=== PATIENT | female | born 2000 | race Caucasian/White ===

== ENCOUNTER 2023-06-12 21:47 | Emergency (ER) | payer BC, MEDICAID, SELFPAY ==
--- NOTE | ~2023-06-12 | XR_ITS ---
EXAM: XR hand LT min 3V DATE: 06/12/2023 22:02 HISTORY: SWELLING AND PAIN TO LATERAL 5TH DIGIT AND METACARPAL . COMPARISON: None available. FINDINGS: Normal mineralization. Comminuted, intra-articular fracture of the proximal aspect of the fifth middle phalange, with minimal displacement. No lytic or blastic lesion. Joint spaces are mainta ined. No erosion or periosteal change. Soft tissues within normal limits. IMPRESSION: Comminuted, minimally displaced, intra-articular fracture of the proximal aspect of the l eft fifth middle phalange. Reviewed, dictated and finalized at location K. IMPRESSION: Comminuted, minimally displaced, intra-articular fracture of the pr oximal aspect of the left fifth middle phalange.
[2023-06-12 21:49] VITALS: BP 156/101; PULSE 103; RESP 20; TEMP 36.2; O2SAT 100
--- NOTE | 2023-06-12 23:11 | ED.UPPEXIN ---
HPI - Extremity Injury (Upper) General Chief Complaint: Extremity Injury, Upper Stated Complaint: left hand injury Time Seen by Provider: 06/12/23 22:02 History of Present Illness HPI narrative: 22-year-old female reports for evaluation of left fifth finger pain after was hit with a softball tonight. Patient states she was at third base and a line drive was hit directly to her face, she put her left hand up to deflect the ball and the ball hit her left fifth digit. She is reporting pain to her left fifth digit that extends into the metacarpal and into the fourth digit with swelling to the fifth digit. Reports limited range of motion secondary to pain. She denies other injuries acquired, no wrist pain, no pain to remainder of upper extremity. No lacerations or abrasions. Related Data Allergies Allergy/AdvReac Type Severity Reaction Status Date / Time iodine Allergy Unknown Verified 06/12/23 21:48 Review of Systems Review of Systems: CONSTITUTIONAL: Denies fever, chills EYES: Denies visual changes, redness, or discharge. ENT: Denies rhinorrhea, congestion, sore throat, or otalgia. CARDIOVASCULAR: Denies chest pain, palpitations, or edema. RESPIRATORY: Denies cough or dyspnea. GASTROINTESTINAL: Denies abdominal pain, nausea, vomiting, or diarrhea. GENITOURINARY: Denies dysuria or hematuria. SKIN: Denies rash or itching. MUSCULOSKELETAL: See HPI NEUROLOGIC: Denies headache, numbness, dizziness, or weakness. PSYCHIATRIC: Denies anxiety or depression. Exam Narrative: GENERAL: Well-appearing, in no acute distress. HEAD: Normocephalic NECK: Supple. CHEST: No respiratory distress. Clear to auscultation, no adventitious breath sounds. HEART: Regular rate and rhythm. No murmur heard. Normal peripheral pulses. ABDOMEN: Soft, nontender, normal active bowel sounds. EXTREMITIES: LUE:Tenderness and edema to the proximal and middle phalanx of the left fifth digit with tenderness to palpation. Limited range of motion secondary to pain. Cap refill less than 2. Sensation intact. Remainder of hand and upper extremity unremarkable. Full range of motion of remainder of fingers and wrist. Radial pulse 2+. No overlying skin changes, abrasions, ecchymosis or lacerations. SKIN: Warm, dry, no rash. NEURO: No focal deficits. Alert and oriented x3. PSYCH: Normal mood and affect. Course Vital Signs Vital signs: Vital Signs Temperature 97.2 F L 06/12/23 21:49 Pulse Rate 103 H 06/12/23 21:49 Respiratory Rate 20 06/12/23 21:49 Blood Pressure 156/101 H 06/12/23 21:49 Pulse Oximetry 100 06/12/23 21:49 Oxygen Delivery Room Air 06/12/23 21:49 Temperature 98 F 06/12/23 23:34 Pulse Rate 92 06/12/23 23:34 Respiratory Rate 16 06/12/23 23:34 Blood Pressure 157/115 H 06/12/23 23:34 Pulse Oximetry 100 06/12/23 23:34 Oxygen Delivery Room Air 06/12/23 21:49 MDM - Extremity Injury (Upper) MDM Narrative Medical decision making narrative: 22-year-old female reports for evaluation of left fifth finger pain after was hit with a softball tonight. Initial vitals reveal elevated blood pressure, tachycardia 103, otherwise unremarkable. Exam significant for tenderness to the left fifth digit overlying the proximal and middle phalanx with edema and limited range of motion. She is neurovascularly intact. Limited range of motion likely secondary to pain and edema. X-rays show comminuted, minimally displaced, intra-articular fracture of the proximal aspect of the left fifth middle phalange. Imaging discussed with patient. She was placed in a finger splint and provided [place] in the ED. Encouraged Tylenol, ibuprofen, RICE and follow-up with hand surgeon Dr. Can within the following week for reevaluation. Strict ED return precautions discussed. She is agreeable to plan verbalized understanding. Discharged in stable condition. Medical Records Attestation: I reviewed the patient's medical records. Discharge Plan
[2023-06-12] MEDS: HYDROcodone/acetaminophen (*CRX) 5-325 MG TABLET 1 TAB PO (23:29)
[2023-06-12 23:34] VITALS: BP 157/115; PULSE 92; RESP 16; TEMP 36.6; O2SAT 100
== END 2023-06-12 23:34 | disposition home or self-care (01) ==
PROVIDERS: Emergency Provider Physician Assistant; PCP Family Medicine
DX: S62.627A Displaced fracture of middle phalanx of left little finger, initial encounter for closed fracture (principal); W21.07XA Struck by softball, initial encounter
CPT/HCPCS: 29130; 73130; 99284; A9270

== ENCOUNTER 2023-06-17 10:04 | Outpatient (CLI) | payer BC, MEDICAID, SELFPAY ==
--- NOTE | ~2023-06-17 | CT_ITS ---
EXAMINATION: CT hand LT wo con DATE: 06/17/2023 10:22 INDICATION: Fracture at the base of the left fifth middle phalanx. TECHNIQUE: High resolution computed tomography (CT) of the left hand was performed without intravenou s contrast. Additional sagittal and coronal reconstructions were performed. Automated exposure contro l and iterative reconstruction technique were employed. The dose-length product was 507.41 mGy-cm. COMPARISON: Left hand radiographs dated 06/12/2023 FINDINGS: Minimally displaced and mildly impacted comminuted intra-articular fracture at the base of the left f ifth middle phalanx. There is up to 1 mm dorsal displacement of a fracture across the dorsal rim of t he articular surface. There is slight proximal migration of the middle phalanx relative to the head o f the proximal phalanx which is positioned between the volar and dorsal sided fragment at the base of the distal phalanx. There is central impaction with 1-2 mm depression of fragments comprising the ce ntral aspect of the proximal articular surface. Alignment and joint spaces in the left hand are other adan normal with no other fractures identified. IMPRESSION: 1. Minimally displaced and mildly impacted comminuted intra-articular fracture at the base of the lef t fifth middle phalanx. Reviewed, dictated and finalized at location A. IMPRESSION: 1. Minimally displaced and mildly impacted comminuted intra-articular fracture at the base of the left fifth middle phalanx.
== END 2023-06-17 10:05 | disposition home or self-care (01) ==
PROVIDERS: PCP Family Medicine; Visit Provider Plastic Surgery
DX: S62.627A Displaced fracture of middle phalanx of left little finger, initial encounter for closed fracture (principal)
CPT/HCPCS: 73200

== ENCOUNTER 2023-06-20 02:47 | Day surgery (SDC) | payer BC, MEDICAID, SELFPAY ==
[2023-06-17 14:23] VITALS: BMI 28.7
--- NOTE | 2023-06-17 14:27 | PC.NURSE ---
Report to the Outpatient Waiting Room, entrance under the green pavilion located off [facility], at time 1130 on date 06/20/23. Planned Procedure Time: 1330. Time changes happen often and if your time is changed the preop area will call you the afternoon before. - You and your visitor will be asked to self-screen and do not enter if you have any COVID symptoms. - A mask is optional within the hospital at this time. Patients may have clear liquids (water, carbonated beverages, clear teas, apple juice) until 8 hours prior to surgery (PER DR. HALL) with a maximum of 20 ounces. - No food from midnight until time of surgery Take the following medications with a SIP of water the morning of surgery: N/A DO NOT STOP ANY OF YOUR OTHER PRESCRIPTION MEDICATIONS PRIOR TO SURGERY ?EXCEPT THE FOLLOWING Medications to discontinue per physician: N/A Date to take last dose: N/A Please no make-up, nail cymro, hairspray, perfume, deodorant, or body powder the day of surgery. No jewelry (including any body piercings) or valuables the day of surgery, leave them at home. Please take a shower or bath the night before, or the morning of, surgery with an antibacterial soap. Wear comfortable, loose fitting clothing. - Jewelry must be removed prior to entering the operating room. Rings and piercings that are not removed may be cut off. - The hospital will not accept responsibility for valuables. - Please leave all valuables, including medications, at home the day of surgery. If you are going home after surgery, a licensed heavy truck driver must drive you home. - NO public transportation without another adult if you receive anesthesia. - We recommend that an adult stay with you for 24 hours following discharge. - We also recommend that you do not drive, make important decision, drink alcoholic beverages, or take any drugs that were not prescribed by your health care provider for at least 24 hours after your discharge time. Follow any additional instructions given to you from your surgeon. If you or anyone in your household have experienced Covid symptoms in the past week, please notify your surgeon or the nurse liaison at the phone number below for possible testing. Telephone instructions given to PT - MAX NARVAEZ and asked if any additional questions and then verbalized understanding. Patient advised to call surgeon office or pre surgery nurse liaison [phone] if any additional questions.
[2023-06-20] VITALS (7 sets, daily range): BP systolic 122–137; BP diastolic 86–96; PULSE 72–110; RESP 14–20; TEMP 36.4–36.7; O2SAT 99–100
--- NOTE | ~2023-06-20 | XR_ITS ---
EXAMINATION: XR surgery orthopedic DATE: 06/20/2023 14:35 INDICATION: Fracture of the left fifth middle phalanx for closed reduction and external fixation. TECHNIQUE: 3 fluoroscopic images of the left fifth digit were obtained during procedure performed by Dr. Belle. Radiologist was not present for the imaging or procedure. The amount of fluoroscopy t sheldon used during this procedure was 0.6 minutes. COMPARISON: None. FINDINGS: Again seen is intra-articular fracture at the base of the middle phalanx which on the lateral project ion demonstrates some persistent depression of a small portion of the central articular surface. Exte rnal fixation devices been placed which extends across the heads of the proximal and middle phalanges . Alignment remains near-anatomic. No new fractures identified. IMPRESSION: 1. Fluoroscopy utilized during closed reduction and external fixation of a comminuted intra-articular fracture at the base of the left fifth middle phalanx. See procedure note for further detail. Reviewed, dictated and finalized at location A. IMPRESSION: 1. Fluoroscopy utilized during closed reduction and external fixation of a comm inuted intra-articular fracture at the base of the left fifth middle phalanx. S procedure note for further detail.
--- NOTE | 2023-06-20 12:52 | WPDHPUPDATE1 ---
History and Physical Update Update Date/Time: 06/20/23 12:52 History and Physical has been reviewed, including an updated exam of the patient. There are NO changes in the patient's condition. Risks, benefits, and alternatives have been discussed and questions answered. Patient agrees to proceed with procedure. pt. seen and examined in pre-op holding area. Patient continues to desire to proceed with closed, possible open reduction and fixation left small finger middle phalanx fracture. Reviewed procedure, post-op expectations and risks including but not limited to bleeding, infection, injury to tendon/nerve/vessel, decreased hand function, stiffness, RSD, no change or worsening of symptoms, maluniion, nonunion, arthritis. Patient stated understanding and signed consent form wishing to proceed.
--- NOTE | 2023-06-20 13:17 | P.PNAN_ITS ---
Anes - Initial Pre Proc Eval Procedure: Operation Date: 06/20/23 13:30 Proposed Procedures p Closed, Possible Open Reduction Internal Fixation/Pinning Left Small Finger Middle Phalanx Fracture - Renard Belle MD Date/Time: 06/20/23 13:17 Surgeon: Renard Belle MD Pre Op Diagnosis: displaced fx middle phalanx Patient Data Age: 22 Gender: F Height: 1.77 m Weight: 89.65 kg Last Vital Signs Temp 36.7 C 06/20/23 11:56 Pulse 90 06/20/23 11:56 Resp 14 06/20/23 11:56 BP 131/96 H 06/20/23 11:56 Pulse Ox 100 06/20/23 11:56 O2 Del Method Room Air 06/20/23 11:56 Allergies Allergy/AdvReac Type Severity Reaction Status Date / Time iodine Allergy Hives Verified 06/20/23 12:00 Home Medications Medication Instructions Recorded Confirmed Type levonorgestrel 0.15 mg-ethinyl 1 tablet PO HS 06/17/23 06/17/23 History estradiol 0.03 mg tablet (Kurvelo (28)) topiramate 25 mg tablet (Topamax) 25 mg PO HS 06/17/23 06/17/23 History oxycodone-acetaminophen 5 mg-325 1 tablet PO Q4H PRN pain #14 tabs 06/20/23 Rx mg tablet (Endocet) Patient hx anesthesia problems: none Family hx anesthesia problems: none Results Review: All pre-operative results and documents have been reviewed as part of the pre- operative evaluation. [facility] [place] Family History Family History Father Hypertension Mother Hypertension Cerebrovascular accident Grandparent Hypertension Heart disease Cerebrovascular accident Grandparent Diabetes mellitus Hypertension Heart disease Social History Social History Smoking status: Former smoker Tobacco type: cigarettes Additional smoking assessment comments: FORMER [employer] SMOK[employer] Alcohol intake: current Drinks per week: 5 Substance use: never Substance use type: does not use Lack of Transportation: No Lack of Food: Never True Concerned About Future Housing: No Difficulty Paying Gas/Electric Bills: No Difficulty Paying for Meds: No Currently Unemployed: No Education: Associate Degree Difficulty w/ Childcare or Family Care: No Living arrangements: alone Spiritual care concerns: No Anes - Eval Final PreProcedure Day of Procedure 06/20/23 13:17 Patient weight: overweight Heart: regular rate and rhythm Lungs: clear to auscultation Airway: Mallampati scale class II Neurological: alert and oriented Last oral intake: >/= 8 hours ASA classification: II Emergent: no Anesthetic plan: proceed Anesthesia type and monitoring: general LMA and standard monitoring Results Review: All pre-operative results and documents have been reviewed as part of the pre- operative evaluation. Informed Consent: The patient's anesthetic plan and its attendant risks and benefits were discussed with the patient/family/POA. Questions were solicited and answers provided to the satisfaction of the patient/family/POA.
[2023-06-20] MEDS: ceFAZolin 2 GM/D5W 50 ML 2 GM/50 ML BAG IVPB (13:25)
[2023-06-20] MEDS: BUPivacaine HCL 0.5% 10 ML AMP INFILTRATE (13:25)
[2023-06-20] MEDS: LIDOCAINE HCL 1% LOCAL INJ 20 ML VIAL 10 ML INFILTRATE (13:25)
[2023-06-20] MEDS: LACTATED RINGERS 1,000 ML 30 ML IV CONT (13:38)
--- NOTE | 2023-06-20 14:33 | P.OP_ITS ---
Procedure Note - Detailed Date of Procedure 06/20/23 Pre-op Diagnosis displaced fx left small finger middle phalanx Post-op Diagnosis Same Procedure Performed reduction and pinning left small finger p2 fracture with douglas frame Surgeon Renard Belle MD Anesthesia General Description of Procedure Reviewed procedure, post-op expectations and risks including but not limited to bleeding, infection, injury to tendon/nerve/vessel, decreased hand function, stiffness, RSD, no change or worsening of symptoms. Patient stated understanding and signed consent form wishing to proceed, malunion, nonunion, arthritis, stiffness. Patient stated understanding and signed the consent form wishing to proceed. Patient was taken back to the operating room. She was placed on the table in the supine position. A tourniquet was placed left upper extremity. The left upper extremity was prepped and draped in usual sterile fashion. Time-out was performed with Anesthesia, surgeon, and staff agreeing on patient's name site and surgery to be performed. I proceeded with injecting 5 cc of 1% lidocaine plain and 0.5% Marcaine plain for digital block of the left small finger in the palm. The mini C-arm was draped brought into the field where I used a 0.45 K- wire to locate the mid point of the head of the proximal phalanx and the middle phalanx on lateral view. I proceeded with placing a 0.45 K-wire transversely across the head of the proximal phalanx verified under AP and lateral fluoroscopy. These was then bent to 90?. I proceeded with placing a 2nd 0.45 K-wire transversely across the head of the middle phalanx. Using a pliers and needle haul truck driver and Bella tip suction I proceeded with fashioning these K-wires into this is soupy frame. The distance between the 2 and hooks was measured to be 2-1/2 cm. The construct of these 2 soupy frame was evaluated under multiple views of fluoroscopy and then a 1 mm segments of red rubber catheter were used as rubber bands. There was reasonable 1 mm distraction of the joint with good congruency of the articular surface at the PIP joint. There was near full passive range of motion with approximately 80 degrees passive flexion of the PIP joint possible. Alcohol swabs were placed around the pin sites followed by 4 x 4 gauze and Hilda. An ulnar gutter splints of Ortho Glass and 2 in Davi wrap was then applied with the MP joint in flexion PIP dip PIP joints in extension. The patient was placed in a left arm sling. The patient was awaken from anesth esia and transferred to the recovery room in stable condition. Complications None Condition Stable Disposition PACU [facility] Billing Surgery - Charge Forward: Surgery Billing (CPT 25062)
== END 2023-06-20 15:56 | disposition home or self-care (01) ==
PROVIDERS: PCP Family Medicine; Visit Provider Plastic Surgery
PROC: (CPT 26727; principal; 2023-06-20 13:30)
DX: S62.627A Displaced fracture of middle phalanx of left little finger, initial encounter for closed fracture (principal); W21.07XA Struck by softball, initial encounter; Z87.891 Personal history of nicotine dependence
CPT/HCPCS: 26727; 99199; A4565; C1713; J0690; J1100; J2001; J2250; J2405; J2704; J3010; J7120

== ENCOUNTER 2023-06-28 13:59 | Outpatient (RCR) | payer BC, MEDICAID, SELFPAY ==
--- NOTE | 2023-06-28 15:51 | OTOPEVAL1 ---
Assessment and note entered by Harris Mallory, SHANNON/Rachel, CHT Evaluation Information Assessment Status Evaluation Diagnosis Displaced fracture of middle phalanx of left little finger Subjective Information Injury 06/12/23 Surgery 06/20/23 - closed reduction external fixation Presents today for fabrication of a custom orthotic and to initiate ROM. She is right handed. Reported Pain Level Pain Score 0: Self Report Assessment OT Clinical Summary Patient referred to outpatient OT s/p left small finger middle phalanx intra-articular fracture s/p douglas frame fixation. A forearm based hand-finger orthotic was fabricated today to position the MPs in about 60-70 degrees of flexion with the IPs extended. She was issued active ROM HEP and demonstrates good understanding. Continued skilled OT indicated to progress HEP, functional therapeutic exercise, and when indicated modalities, manual treatment, and progression of HEP. Plan of Care Interventions Therapeutic Exercise,Manual Therapy,Therapeutic Activities,Hot Pack/Cold Pack,Check Out for Orthotic/Pr,Paraffin OT Services Indicated Yes Treatment Frequency and 1-2x/week for 4 weeks Duration These treatments will address the objective and functional deficits as defined above. The patient will be advanced safely and appropriately in order for the patient to progress towards his/her prior level of function. Additional exercises will be introduced and as well as a comprehensive home exercise program upon discharge, if needed, ?to ensure carryover of functional gains achieved in the clinic. This treatment plan has been reviewed and agreement upon by the patient.
--- NOTE | 2023-06-28 15:51 | OPREHPOC ---
Outpatient Therapy Plan of Care This is a Multidisciplinary Plan of Care that may contain components documented by all disciplines (PT, OT, and ST.) OT Problem 1 OT Problem #1 Knowledge Deficit OT Goal 1 Goal 1. Patient to be independent with instructed materials. Target Visit 8 OT Problem 2 OT Problem #2 Impaired Range of Motion OT Goal 1 Goal 1. Patient to improve active ROM of the left small finger: - MCP flexion to 90 - PIP flexion to 80 - be able to touch her pinky to her palm. Target Visit 8
--- NOTE | 2023-07-18 08:51 | BUOTOPDC ---
Assessment and note entered by Harris Mallory, SHANNON/Rachel, CHT Discharge Summary OT Clinical Summary Karlene attended the initial evaluation on 06/28/23 where a custom splint was fabricated and she was issued active ROM exercises. Between the patient's schedule and the therapist's schedule she was unable to return for follow up for 2 weeks. She called to report she is going to follow up at another clinic due to being able to get in sooner. Discharging her from our services at this time.
== END 2023-07-18 11:45 | disposition home or self-care (01) ==
LOC: ANHOT 13:59
PROVIDERS: PCP Family Medicine; Visit Provider Plastic Surgery
DX: S62.627D Displaced fracture of middle phalanx of left little finger, subsequent encounter for fracture with routine healing (principal)
CPT/HCPCS: 97110; 97165; L3913

== ENCOUNTER 2023-07-11 08:48 | Outpatient (CLI) | payer BC, MEDICAID, SELFPAY ==
--- NOTE | ~2023-07-11 | XR_ITS ---
EXAMINATION: XR hand LT min 3V DATE: 07/11/2023 09:16 INDICATION: Left hand fifth digit fracture. TECHNIQUE: 4 views of left hand were obtained. COMPARISON: Left hand radiographs 06/12/2023 FINDINGS: There is a comminuted fracture of fifth middle phalanx . There is up to 2 mm impaction of t he proximal articular surface. There are wires in the fifth proximal and middle phalanges with wideni ng of the fifth proximal interphalangeal joint. Other joint spaces are normal. IMPRESSION: 1. Comminuted fracture of fifth middle phalanx with fixation. Reviewed, dictated and finalized at location A.
== END 2023-07-11 08:49 | disposition home or self-care (01) ==
PROVIDERS: PCP Family Medicine; Visit Provider Plastic Surgery
DX: S62.627A Displaced fracture of middle phalanx of left little finger, initial encounter for closed fracture (principal)
CPT/HCPCS: 73130

== ENCOUNTER 2023-07-22 11:37 | Outpatient (CLI) | payer BC, MEDICAID, SELFPAY ==
--- NOTE | ~2023-07-22 | XR_ITS ---
EXAMINATION: XR finger 5th LT min 2V DATE: 07/22/2023 11:54 INDICATION: Fracture of left hand fifth middle phalanx. TECHNIQUE: 4 views of left hand fifth digit were obtained. COMPARISON: Left hand fifth digit radiographs 07/11/2023 FINDINGS: There is a comminuted fracture of fifth middle phalanx with involvement of the proximal art icular surface with up to 2 mm impaction of the articular surface. Callus formation is seen. There ar e lucencies in the heads of the middle and proximal phalanges after removal of fixation wires. There is a loose body in proximal interphalangeal joint dorsally. Distal interphalangeal joint is normal. IMPRESSION: 1. Healing comminuted fracture of fifth middle phalanx. 2. Loose body in fifth proximal interphalangeal joint. Reviewed, dictated and finalized at location E.
== END 2023-07-22 11:38 | disposition home or self-care (01) ==
PROVIDERS: PCP Family Medicine; Visit Provider Plastic Surgery
DX: S62.627D Displaced fracture of middle phalanx of left little finger, subsequent encounter for fracture with routine healing (principal); X58.XXXD Exposure to other specified factors, subsequent encounter
CPT/HCPCS: 73140